=== PATIENT | male | born 1985 | race Caucasian/White ===

== ENCOUNTER 2024-08-20 17:53 | Emergency (ER) | payer SELFPAY ==
[~2024-08-20] VITALS: Ht 180.3 cm; Wt 82.0 kg
[2024-08-20] VITALS (8 sets, daily range): BP systolic 126–147; BP diastolic 94–105
[2024-08-20] MEDS ORDERED: SODIUM CHLORIDE 0.9% 1,000 ML IV ONE (18:40)
[2024-08-20] MEDS ORDERED: HYDROmorphone HCL 2 MG/AMP IV ONE (18:45)
[2024-08-20 19:06] LABS: BASO% 0.2 % (0-3); EOS% 0.9 % (0-8); IMMATURE GRANULOCYTES 0.3 % (0.0-5.0); LYMPH% 3.3 % (15-41); MEAN CORPUSCULAR HGB 31.8 pG CALC (26.0-32.0); MEAN CORPUSCULAR HGB CONC 34.6 g/dL CAL (32.0-36.0); MONO% 8.7 % (2-13); NEUT# 7.69 thou/uL (1.82-7.42); NEUT% 86.6 % (42-76); RED BLOOD COUNT 5.03 mill/uL (4.70-6.10); RED CELL DISTRI WIDTH 12.2 % (11.5-15.5)
[2024-08-20 19:07] LABS: HEMATOCRIT 46.2 % (39.0-50.0); MEAN CELL VOLUME 91.8 fL CALC (80.0-100.0)
[2024-08-20 19:18] LABS: ALBUMIN 4.5 g/dL (3.2-5.0); BILIRUBIN, TOTAL 0.6 mg/dL (0.2-1.3); CREATININE 0.9 mg/dL (0.7-1.3); POTASSIUM 3.7 mmol/l (3.5-5.1); TOTAL PROTEIN 7.8 g/dL (6.3-8.2)
[2024-08-20] MEDS ORDERED: ACETAMINOPHEN 500 MG TAB PO ONE (19:30)
[2024-08-20] MEDS ORDERED: KETOROLAC TROMETHAMINE 30 MG/ML SDV IV ONE (19:30)
[2024-08-20] MEDS ORDERED: LACTATED RINGER'S 1,000 ML IV ONE (19:35)
[2024-08-20] MEDS ORDERED: TAM75CAP PO (20:29)
[2024-08-20] MEDS ORDERED: PAXLOVID PO (20:29)
[2024-08-20] MEDS ORDERED: OSELTAMIVIR PHOSPHATE 75 MG/TAB CAP PO ONE (20:30)
[2024-08-20 20:39] LABS: URINE BLOOD DIPSTICK Small (NEGATIVE); URINE GLUCOSE - DIPSTICK Negative (NEGATIVE); URINE KETONE 40 mg/dL (NEGATIVE); URINE LEUK ESTERASE Negative (NEGATIVE); URINE NITRITE - DIPSTICK Negative (Negative); URINE PH 5.5 (4.5-8.0); URINE PROTEIN - DIPSTICK 30 mg/dL (NEG-TRACE); URINE SPECIFIC GRAVITY >=1.030
[2024-08-20 20:41] LABS: URINE COLOR Dark yellow
[2024-08-20 20:50] LABS: URINE TRANSITIONAL EPI. CELLS FEW hpf
== END 2024-08-20 20:27 | disposition home or self-care (01) | DRG 179 ==
LOC: ED 17:53
PROVIDERS: Family Medicine
DX: U07.1 COVID-19 (principal); J11.1 Influenza due to unidentified influenza virus with other respiratory manifestations
CPT/HCPCS: J1171